=== PATIENT | female | born 1985 | race African-American/Black ===

== ENCOUNTER → 2019-08-30 | Outpatient (CLI) | payer OTHER ==
--- NOTE | 2019-08-30 13:15 | RAD ---
EXAM: Lumbar spine, 3 views. HISTORY: Pain. COMPARISON: None. FINDINGS: 3 views of the lumbar spine are obtained. 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 This is a normal variant. The vertebral vega are normal in height and the disc spaces are preserved. IMPRESSION: No acute osseous finding. Electronically signed by: Louisa Romero MD (08/30/2019 1:12 PM) [id number]
== END | disposition home or self-care (01) ==
LOC: DXRAD 09:05
PROVIDERS: ATTEND Physician Assistant Medical
DX: M54.5 Low back pain (principal)
CPT/HCPCS: 72100